=== PATIENT | male | born 2000 | race Caucasian/White ===

== ENCOUNTER 2018-10-04 08:15 | Outpatient (CLI) | payer OTHER | END 2018-10-04 08:23 | disposition home or self-care (01) | LOC: LAB 08:15 | DX: E03.8 Other specified hypothyroidism (principal); E11.9 Type 2 diabetes mellitus without complications; I10 Essential (primary) hypertension; E78.2 Mixed hyperlipidemia; M19.90 Unspecified osteoarthritis, unspecified site; M72.8 Other fibroblastic disorders ==